=== PATIENT | female | born 1965 | race Two or more races ===

== ENCOUNTER 2018-09-27 09:14 | Inpatient (IN) | payer OTHER | END 2018-09-29 10:45 | disposition home or self-care, planned readmission (81) | LOC: ED 09:14 → MU 12:26 → ED 09:14 → MU 12:26 → ED 09:14 → MU 12:26 → ED 09:14 → MU 12:26 | DX: K57.32 Diverticulitis of large intestine without perforation or abscess without bleeding (principal); N39.0 Urinary tract infection, site not specified; K52.9 Noninfective gastroenteritis and colitis, unspecified; Z68.30 Body mass index [BMI] 30.0-30.9, adult; Z87.440 Personal history of urinary (tract) infections ==

== ENCOUNTER 2019-01-19 23:33 | Emergency (ER) | payer OTHER ==
[~2019-01-19] VITALS: Ht 162.6 cm; Wt 79.4 kg
[2019-01-19 23:43] VITALS: Ht 162.6 cm; Wt 79.4 kg
[2019-01-20 02:05] VITALS: BP 148/97
== END 2019-01-20 02:06 | disposition home or self-care (01) ==
LOC: ED 23:33
DX: N39.0 Urinary tract infection, site not specified (principal); M32.9 Systemic lupus erythematosus, unspecified; Z88.1 Allergy status to other antibiotic agents
CPT/HCPCS: J1885

== ENCOUNTER 2019-05-06 01:04 | Emergency (ER) | payer OTHER ==
[~2019-05-06] VITALS: Ht 162.6 cm; Wt 77.1 kg
[2019-05-06 01:49] VITALS: Ht 162.6 cm; Wt 77.1 kg
[2019-05-06 03:18] VITALS: BP 169/90
== END 2019-05-06 03:18 | disposition home or self-care (01) ==
LOC: ED 01:04
DX: S32.019A Unspecified fracture of first lumbar vertebra, initial encounter for closed fracture (principal); Z88.1 Allergy status to other antibiotic agents; W01.0XXA Fall on same level from slipping, tripping and stumbling without subsequent striking against object, initial encounter; Y93.89 Activity, other specified; Y92.89 Other specified places as the place of occurrence of the external cause; Y99.8 Other external cause status
CPT/HCPCS: J1885

== ENCOUNTER 2020-01-20 19:29 | Emergency (ER) | payer OTHER ==
[~2020-01-20] VITALS: Ht 162.6 cm; Wt 78.5 kg
[2020-01-20 19:43] VITALS: Ht 162.6 cm; Wt 78.5 kg
[2020-01-20 21:42] VITALS: BP 149/72
== END 2020-01-20 23:02 | disposition home or self-care (01) ==
LOC: ED 19:29
DX: B86 Scabies (principal); Z88.1 Allergy status to other antibiotic agents

== ENCOUNTER 2020-05-22 18:18 | Emergency (ER) | payer OTHER ==
[~2020-05-22] VITALS: Ht 165.1 cm; Wt 79.4 kg
[2020-05-22 18:21] VITALS: Ht 165.1 cm; Wt 79.4 kg
[2020-05-22 19:52] LABS: BASOPHIL % 1.7 % (0-2); PLATELET COUNT 301 x10^3mcL (130-400); RED CELL DISTRIBUTION WIDTH 13.5 % (11.5-14.5)
[2020-05-22 20:18] LABS: CARBON DIOXIDE 22.4 mmol/L (21-32); CREATININE SERUM 1.9 mg/dL (0.6-1.0)
[2020-05-22 20:21] LABS: ALBUMIN 3.8 g/dL (3.4-5.0); CALCIUM 9.1 mg/dL (8.5-10.1); TOTAL PROTEIN, SERUM 7.9 g/dL (6.4-8.2)
[2020-05-22 20:22] LABS: BILIRUBIN TOTAL 0.34 mg/dL (0.20-1.00); MAGNESIUM 2.1 mg/dL (1.8-2.4); PHOSPHOROUS 3.2 mg/dL (2.5-4.9)
[2020-05-22 20:24] LABS: UA SPECIFIC GRAVITY 1.015 (1.005-1.035); microscopic required? YES; urine erythrocyte TRACE (NEGATIVE)
[2020-05-22 22:25] VITALS: BP 135/72
== END 2020-05-22 22:25 | disposition home or self-care (01) ==
LOC: ED 18:18
PROVIDERS: Emergency Medicine
DX: T42.8X5A Adverse effect of antiparkinsonism drugs and other central muscle-tone depressants, initial encounter (principal); N39.0 Urinary tract infection, site not specified; E86.0 Dehydration; R53.1 Weakness; Z88.1 Allergy status to other antibiotic agents; Y92.89 Other specified places as the place of occurrence of the external cause
CPT/HCPCS: J0696; J2405; J7030; J7060; Q0092